=== PATIENT | female | born 1995 | race Hispanic/Latino ===

== ENCOUNTER → 2023-02-17 13:36 | Outpatient (CLI) | payer OTHER, SELFPAY ==
--- NOTE | 2023-02-17 14:14 | DI.RAD.S_ITS ---
PROCEDURE: XR CHEST 2V INDICATIONS: CHEST XRAY TECHNIQUE: 2 views of the chest were acquired. COMPARISON: None. FINDINGS: Surgical changes and devices: None. Lungs and pleura: Lungs are clear. No pleural effusions or pneumothorax. Mediastinum: Mediastinal contours are normal. Heart size is normal. Bones and chest wall: No suspicious bony abnormalities. Soft tissues appear unremarkable. IMPRESSION: No acute cardiopulmonary abnormality is seen. Dictated by: Vasyl Miranda M.D. on 02/17/2023 at 16:09 Approved by: Vasyl Miranda M.D. on 02/17/2023 at 16:09
== END ==
PROVIDERS: Referring Provider Chiropractor; Visit Provider Chiropractor
DX: R00.0 Tachycardia, unspecified (principal); J84.01 Alveolar proteinosis; E58 Dietary calcium deficiency; Z87.891 Personal history of nicotine dependence
CPT/HCPCS: 71046; 93005; 94060

== ENCOUNTER → 2023-02-17 14:58 | Outpatient (CLI) | payer OTHER, SELFPAY ==
--- NOTE | 2023-02-17 14:59 | DI.ECHO.S_ITS ---
[facility]---------+ [facility] +---------+ : : [address] : [address] : : : : [id number] : : : : Phone: [phone]+ Echocardiogram Report + + :Name: ADITYA GUERRIER Study Date: 02/17/2023 Height: 62 in : :[facility] ReadingLocation: Weight: 148 lb : : Gender: Female BSA: 1.7 m2 : :: 1995 Age: 27 yrs BP: 118/77 mmHg: :Reason For Study: TACHYCARDIA : :Ordering Physician: MATILDA, : :ANURADHA Performed By: Shazia Morales : :Referring: ANURADHA GREY : + + Interpretation Summary Normal echo study. Procedure: A two-dimensional transthoracic echocardiogram with color flow and Doppler was performed. The study quality was technically adequate. There is no prior echocardiogram noted for this patient. The patient was in sinus rhythm with heart rates between 62-70 bpm during the exam. Left Ventricle: The left ventricle appears normal in size, wall thickness, and systolic function without any focal wall motion abnormalities. The ejection fraction is estimated to be 60-65%. Right Ventricle: The right ventricle is normal in size and function. Atria: The left atrial size is normal. Right atrial size is normal. There is no Doppler evidence for an interatrial shunt. Mitral Valve: The mitral valve is normal in structure and function. There is no mitral regurgitation noted. Aortic Valve: The aortic valve is trileaflet. The aortic valve opens well. There is no aortic valve stenosis. No aortic regurgitation is present. Tricuspid Valve: The tricuspid valve is normal in structure and function. There is trace tricuspid regurgitation. Pulmonic Valve: The pulmonic valve leaflets are thin and pliable; valve motion is normal. There is no pulmonic valvular regurgitation. Great Vessels: The aortic root is normal size. The dimensions of the ascending aorta are normal. The IVC is of normal diameter and collapses greater than 50% with a sniff. This suggests a low right atrial pressure of 3 mm Hg. Pericardium/ Pleura There is no pericardial effusion. There is no pleural effusion. MMode/2D Measurements & Calculations LVIDd: 4.4 cm LVOT diam: 2.0 cm LVIDs: 2.9 cm Ao root diam: 2.9 cm FS: 33.5 % asc Aorta Diam: 2.4 cm IVSd: 0.85 cm Ao Arch Diam (Prox Trans): 2.2 cm LVPWd: 0.77 cm LV [place]. diameter/BSA (cm/m^2): 2.6 LV sys. diameter/BSA (cm/m^2): 1.7 LA A2 area: 11.6 cm2 RA long axis: 3.7 cm LA A4 area: 10.9 cm2 RA area: 10.9 cm2 LA length (vol): 4.0 cm RA vol: 27.6 ml LA vol: 27.1 ml RA : 16.4 ml/m2 LA vol index: 16.1 ml/m2 IVC diam: 1.5 cm RVD1 (basal): 3.0 cm TAPSE: 2.5 cm Doppler Measurements & Calculations Ao V2 max: 106.6 cm/sec LVOT Max Kiran: 95.9 cm/sec Ao V2 mean: 73.1 cm/sec LV V1 max P.7 mmHg Ao max P.5 mmHg LV V1 VTI: 19.4 cm Ao mean P.4 mmHg RTACY(I,D): 2.8 cm2 Ao V2 VTI: 22.8 cm TRACY(V,D): 3.0 cm2 sev ratio: 0.85 TRACY indexed to BSA (cm^2/m^2): 1.7 MV E max kiran: 68.1 cm/sec PA V2 max: 94.0 cm/sec MV A max kiran: 33.6 cm/sec PA V2 mean: 67.1 cm/sec MV E/A: 2.0 PA mean P.0 mmHg Med Peak E' Kiran: 15.7 cm/sec PA pr(Accel): 17.3 mmHg E/E' med: 4.4 Lat Peak E' Kiran: 13.3 cm/sec E/E' lat: 5.1 E/e' average: 4.7 MV dec time: 0.29 sec SV(LVOT): 63.9 ml Electronically signed by: John Lara on Reading Physician:02/17/2023 05:59 PM
== END ==
PROVIDERS: Referring Provider Chiropractor; Visit Provider Chiropractor
DX: R00.0 Tachycardia, unspecified (principal); J84.01 Alveolar proteinosis; E58 Dietary calcium deficiency; Z87.891 Personal history of nicotine dependence
CPT/HCPCS: 71046; 93005; 93306; 94060